=== PATIENT | male | born 1990 | race Caucasian/White ===

== ENCOUNTER 2023-11-23 23:02 | Observation (INO) | payer OTHER ==
--- NOTE | 2023-11-24 01:26 | ED ---
Abdominal Pain HPI - General Chief Complaint: Abdominal Pain Stated Complaint: Gall Stones Time Seen by Provider: 11/23/23 23:22 Source: patient Mode of arrival: EMS Limitations: no limitations - History of Present Illness Initial Comments: 33-year-old male presents to the emergency department from [facility]. Patient was seen on the eighth at [place] for right upper quadrant abdominal pain. He was told that he was having reflux. No imaging was performed. Patient was sent home. He continued to have pain and therefore went into [place] last night. Ultrasound was not available. CT was performed which demonstrates gallstones. He did receive a considerable amount of medications and continue to have pain. The ER doc at [facility] recommended transfer for surgical consultation. Patient denies any fevers. Admits to nausea. No changes in his bowel or bladder habits. No other alleviating, precipitating or modifying factors - Related Data Allergies Allergy/AdvReac Type Severity Reaction Status Date / Time No Known Allergies Allergy Verified 11/23/23 23:13 Review of Systems ROS Statement: Those systems with pertinent positive or pertinent negative responses have been documented in the HPI. ROS Other: All systems not noted in ROS Statement are negative. Past Medical History Past Medical History: No Reported History, GERD/Reflux Additional Past Medical History / Comment(s): jarvis to right arm Past Surgical History: Adenoidectomy, Tonsillectomy Past Psychological History: ADD/ADHD, Anxiety Smoking Status: Current every day smoker Past Alcohol Use History: None Reported Past Drug Use History: Marijuana General Exam Limitations: no limitations General appearance: alert, in no apparent distress Head exam: Present: atraumatic, normocephalic, normal inspection Eye exam: Present: normal appearance, PERRL, EOMI. Absent: scleral icterus, conjunctival injection, periorbital swelling ENT exam: Present: normal exam, mucous membranes moist Neck exam: Present: normal inspection. Absent: tenderness, meningismus, lymphadenopathy Respiratory exam: Present: normal lung sounds bilaterally. Absent: respiratory distress, wheezes, rales, rhonchi, stridor Cardiovascular Exam: Present: regular rate, normal rhythm, normal heart sounds. Absent: systolic murmur, diastolic murmur, rubs, gallop, clicks GI/Abdominal exam: Present: soft, tenderness (ruq pain), normal bowel sounds. Absent: distended, guarding, rebound, rigid Extremities exam: Present: normal inspection, full ROM, normal capillary refill. Absent: tenderness, pedal edema, joint swelling, calf tenderness Back exam: Present: normal inspection Neurological exam: Present: alert, oriented X3, CN II-XII intact Psychiatric exam: Present: normal affect, normal mood Skin exam: Present: warm, dry, intact, normal color. Absent: rash Course Vital Signs 11/23/23 11/24/23 11/24/23 23:04 00:05 02:07 Temperature 97.8 F Pulse Rate 62 60 82 Respiratory 20 18 18 Rate Blood Pressure 127/66 120/62 118/75 O2 Sat by Pulse 98 98 99 Oximetry 11/24/23 06:00 Temperature Pulse Rate 85 Respiratory 18 Rate Blood Pressure 125/77 O2 Sat by Pulse 99 Oximetry Medical Decision Making - Medical Decision Making Was pt. sent in by a medical professional or institution (, PA, LODGE OFFICER, urgent care, hospital, or retirement...) When possible be specific @ -Patient sent in from [facility] Did you speak to anyone other than the patient for history (EMS, parent, family, police, friend...)? What history was obtained from this source @ -I spoke with Dr. Osborn at [facility] Did you review nursing and triage notes (agree or disagree)? Why? @ -I reviewed and agree with nursing and triage notes Were old charts reviewed (outside hosp., previous admission, EMS record, old EKG, old radiological studies, urgent care reports/EKG's, retirement records)? Report findings @ -I reviewed the CT that was completed at [facility] earlier today Differential Diagnosis (chest pain, altered mental status, abdominal pain women, abdominal pain men, vaginal bleeding, weakness, fever, dyspnea, syncope, headache, dizziness, GI bleed, back pain, seizure, CVA, palpatations, mental health, musculoskeletal)? @ -Differential Abdominal Pain Men: Appendicitis, cholecystitis, diverticulosis, ischemic bowel, pancreatitis, he patitis, UTI, gastroenteritis, AAA, incarcerated hernia, bowel obstruction, constipation, inflammatory bowel, hepatitis, peptic ulcer disease, splenic infarction, perforated viscus, testicular torsion, this is not meant to be an all-inclusive list EKG interpreted by me (3pts min.). @ -Not done X-rays interpreted by me (1pt min.). @ -None done CT interpreted by me (1pt min.). @ -None done U/S interpreted by me (1pt. min.). @ -Yes and demonstrates possible cholecystitis What testing was considered but not performed or refused? (CT, X-rays, U/S, labs)? Why? @ -None What meds were considered but not given or refused? Why? @ -None Did you discuss the management of the patient with other professionals (professionals i.e. DrHarshal, PA, LODGE OFFICER, lab, RT, psych nurse, social insurance adviser, toe puncher, teacher, science and operations officer, supportive employment case manager)? Give summary @ -discussed care with dr. alejandre who accepted admission Was smoking cessation discussed for >3mins.? @ -No Was critical care preformed (if so, how long)? @ -No Were there social determinants of health that impacted care today? How? (Homelessness, low income, unemployed, alcoholism, drug addiction, transportation, low edu. Level, literacy, decrease access to med. care, senior living, rehab)? @ -No Was there de-escalation of care discussed even if they declined (Discuss DNR or withdrawal of care, Hospice)? DNR status @ -No What co-morbidities impacted this encounter? (DM, HTN, Smoking, COPD, CAD, Cancer, CVA, ARF, Chemo, Hep., AIDS, mental health diagnosis, sleep apnea, morbid obesity)? @ -None Was patient admitted / discharged? Hospital course, mention meds given and route, prescriptions, significant lab abnormalities, going to OR and other pertinent info. @ -Upon arrival patient seen and evaluated in room 25. I did review the transfer packet. I spoke with Dr. Alejandre. Patient is n.p.o. Patient will be admitted to his service. Ultrasound was performed which demonstrates possible cholecystitis. I did dose 1 dose of antibiotics. Patient admitted to the floor in stable condition Undiagnosed new problem with uncertain prognosis? @ -No Drug Therapy requiring intensive monitoring for toxicity (Heparin, Nitro, Insulin, Cardizem)? @ -No Were any procedures done? @ -No Diagnosis/symptom? @ -Acute right upper quadrant pain, acute cholelithiasis, possible cholecystitis Acute, or Chronic, or Acute on Chronic? @ -Acute Uncomplicated (without systemic symptoms) or Complicated (systemic symptoms)? @ -Complicated Side effects of treatment? @ -No Exacerbation, Progression, or Severe Exacerbation? @ -No Poses a threat to life or bodily function? How? (Chest pain, [place], [place], pneumonia, PE, COPD, DKA, ARF, appy, cholecystitis, CVA, Diverticulitis, Homicidal, Suicidal, threat to staff... and all critical care pts) @ -No Disposition Clinical Impression: RUQ pain, Cholelithiasis Disposition: ADMITTED IP TO THIS [facility] Condition: Stable Is patient prescribed a controlled substance at d/c from ED?: No Time of Disposition: Decision to Admit Reason: Admit from EC Decision Date: 11/24/23 Decision Time:
[2023-11-24] MEDS ORDERED: ACETAMINOPHEN TAB 325 MG TAB PO PRN (01:27)
[2023-11-24] MEDS ORDERED: NALOXONE 0.4 MG/ML 1 ML VIAL IV PRN (01:27)
[2023-11-24] MEDS: SODIUM CHLORIDE 0.9% 1,000 ML IV SCH (05:07)
--- NOTE | 2023-11-24 05:14 | US ---
EXAM: US Abdomen Limited, Gallbladder CLINICAL HISTORY: ITS.REASON US Reason: ruq pain TECHNIQUE: Real-time ultrasound of the right upper quadrant with image documentation. COMPARISON: No relevant prior studies available. FINDINGS: Limitations: Overlying bowel gas. Gallbladder: Multiple echogenic foci/gallstones within the gallbladder with [id number] sign. Gallbladder wall appears thickened, 5 mm. Positive sonographic Doty's sign. No pericholecystic fluid. Common bile duct: Unremarkable as visualized. No stones. No dilation. Common bile duct measures 0.5 cm in diameter. Pancreas: Pancreas obscured by bowel gas. IMPRESSION: Cholelithiasis and gallbladder wall thickening. May represent cholecystitis. Correlate and could consider HIDA scan.
[2023-11-24] MEDS: PIPERACILLIN-TAZOBACTAM 3.375 GM in SODIUM CHLORIDE 0.9% 100 ML IVPB STA (08:28)
[2023-11-24 08:51] LABS: Basophils # (A) 0.1 k/uL (0-0.2); Basophils % (A) 1 %; Eosinophils # (A) 0.2 k/uL (0-0.7); Eosinophils % (A) 2 %; HCT 48.4 % (39.0-53.0); HGB 15.7 gm/dL (13.0-17.5); Lymphocytes # (A) 1.6 k/uL (1.0-4.8); Lymphocytes % (A) 22 %; MCHC 32.5 g/dL (31.0-37.0); MCV 95.2 fL (80.0-100.0); Monocytes # (A) 0.7 k/uL (0-1.0); Monocytes % (A) 10 %; Neutrophils # (A) 4.8 k/uL (1.3-7.7); Neutrophils % (A) 64 %; Platelet Count 193 k/uL (150-450); RBC 5.09 m/uL (4.30-5.90); RDW 13.1 % (11.5-15.5); WBC 7.4 k/uL (3.8-10.6)
[2023-11-24 09:26] LABS: ALT 85 U/L (4-49); AST 70 U/L (17-59); African American GFR (CKD) >90 (>60 ml/min/1.73 sqM); Albumin 3.9 g/dL (3.5-5.0); Albumin/Globulin Ratio 1.6; Alkaline Phosphatase 131 U/L (38-126); Anion Gap 5 mmol/L; Blood Urea Nitrogen 8 mg/dL (9-20); Calcium 9.5 mg/dL (8.4-10.2); Carbon Dioxide 24 mmol/L (22-30); Chloride 109 mmol/L (98-107); Globulin 2.5 g/dL; Glucose 89 mg/dL (74-99); Non-African American GFR(CKD) >90 (>60 ml/min/1.73 sqM); Potassium 4.6 mmol/L (3.5-5.1); Sodium 138 mmol/L (137-145); Total Bilirubin 0.8 mg/dL (0.2-1.3); Total Protein 6.4 g/dL (6.3-8.2)
[2023-11-24] MEDS: IV FLUID CONTINUATION 1,000 ML IV ONE (09:44)
[2023-11-24] MEDS: ONDANSETRON 4 MG/2 ML VIAL IVP PRN (10:00)
[2023-11-24] MEDS: DEXAMETHASONE SOD PHOSPHATE 4 MG/ML 1 ML VIAL IVP STA (10:02)
[2023-11-24] MEDS: LACTATED RINGERS 1,000 ML BAG IV STA (10:10)
[2023-11-24] MEDS: HEPARIN SODIUM,PORCINE 5,000 UNIT/ML 1 ML VIAL SQ STA (10:26)
[2023-11-24] MEDS ORDERED: KETOROLAC 15 MG/ML 1 ML VIAL ONE (10:33)
[2023-11-24] MEDS ORDERED: NEOSTIGMINE 1 MG/ML 10 ML VIAL ONE (10:33)
[2023-11-24] MEDS ORDERED: PROPOFOL 10 MG/ML 20 ML VIAL IV ONE (10:33)
[2023-11-24] MEDS ORDERED: HYDROmorphone (PF) 1 MG/ML ONE (10:33)
[2023-11-24] MEDS ORDERED: LIDOCAINE 1% INJ 10MG/ML (20 ML MDV) ONE (10:33)
[2023-11-24] MEDS ORDERED: ROCURONIUM 10 MG/ML (5 ML VIAL) IV ONE (10:33)
[2023-11-24] MEDS ORDERED: fentaNYL (PF) 50 MCG/ML 2 ML AMP ONE (10:33)
[2023-11-24] MEDS ORDERED: MIDAZOLAM 2 MG/2 ML VIAL ONE (10:33)
[2023-11-24] MEDS ORDERED: GLYCOPYRROLATE 0.2 MG/ML 2 ML VIAL ONE (10:33)
[2023-11-24] MEDS ORDERED: SUCCINYLCHOLINE CHLORIDE 200 MG/10 ML VIAL IV ONE (10:33)
--- NOTE | 2023-11-24 10:33 | P.GSHP ---
History of Present Illness H&P Date: 11/24/23 CHIEF COMPLAINT: Right upper quadrant abdominal pain HISTORY OF PRESENT ILLNESS: This is a 33-year-old male who presented with right upper quadrant abdominal pain x 2 weeks. Patient reports pain worsened again on Monday morning. He went to ER in [place] and at that time was told he had GERD and sent home. Patient's symptoms continued to right upper quadrant pain and was having nausea and vomiting for the past 3 days and went to the [place] [facility] they did a CAT scan that showed gallstones. Patient transferred to [facility] to be evaluated by surgeon. Gallbladder ultrasound had reported gallstones and gallbladder wall thickening may represent cholecystitis. Patient denies any fever or chills. Denies any prior abdominal surgeries. PAST MEDICAL HISTORY: GERD, ADHD, anxiety PAST SURGICAL HISTORY: Adenoidectomy, Tonsillectomy MEDICATIONS: See below ALLERGIES: See below SOCIAL HISTORY: No illicit drug use. Nicotine dependence. Denies alcohol use. Smokes marijuana once a week REVIEW OF SYSTEMS: CONSTITUTIONAL: Denies fever or chills. HEENT: Denies blurred vision, vision changes, or eye pain. Denies hemoptysis CARDIOVASCULAR: Denies chest pain or pressure. RESPIRATORY: No shortness of breath. GASTROINTESTINAL: See HPI for pertinent findings HEMATOLOGIC: Denies bleeding disorders. GENITOURINARY: Denies any blood in urine or increased urinary frequency. SKIN: Denies pruitis. Denies rash. PHYSICAL EXAM: VITAL SIGNS: Reviewed GENERAL: Well-developed in no acute distress. HEENT: No sclera icterus. Extraocular movements grossly intact. Moist buccal m ucosa. Head is atraumatic, normocephalic. No nasal drainage. ABDOMEN: Soft. Nondistended. Right upper quadrant tenderness with palpation. 2 small burn areas on right side abdomen NEUROLOGIC: Alert and oriented. Cranial nerves II through XII grossly intact. LABORATORY DATA: WBC 7.4 Hgb 15.7 platelets 193 Sodium 138 potassium 4.6 creatinine 0.69 Total bilirubin 0.8 AST 70 ALT 85 alk phos 131 IMAGING: Gallbladder ultrasound reports cholelithiasis with gallbladder wall thickening. May represent cholecystitis ASSESSMENT: 1. Acute cholecystitis. Ultrasound reporting cholelithiasis with gallbladder wall thickening 2. Mildly elevated LFTs PLAN: -Patient scheduled for laparoscopic cholecystectomy today with Dr. Cerrato -Continue antibiotics -Continue IV fluids -Continue pain management -Keep patient n.p.o. Physician Veterinarian Poultry note has been reviewed by physician. Signing provider agrees with the documented findings, assessment, and plan of care. I have personally seen and examined the patient, reviewed the BAND SPLITTER /PAs history, exam and MDM and agree with the assessment and plan as written. Based on total visit time, I have performed more than 50% of the visit. As above: Patient with epigastric pain that radiates to the right upper quadrant. On and off for the last 1 week. Denies any change in the color of his skin urine or stool. Patient does have mildly elevated liver enzymes today and they were normal yesterday. Common bile duct normal size. Patient I discussed the clinical scenario in detail. The possibility of choledocholithiasis reviewed. Patient certainly needs his gallbladder out regardless. Will proceed with laparoscopic, possible open cholecystectomy at this time. If there is any suspicion for choledocholithiasis postoperatively will consult GI for possible ERCP. Risks of bleeding, infection, bile leak, bile duct injury, retained common bile duct stone, trocar injury, conversion to an open procedure, hernia, anesthesia related complications were reviewed. The patient understands and wishes to proceed. Past Medical History Past Medical History: No Reported History, GERD/Reflux Additional Past Medical History / Comment(s): jarvis to right arm Past Surgical History: Adenoidectomy, Tonsillectomy Past Psychological History: ADD/ADHD, Anxiety Smoking Status: Current every day smoker Past Alcohol Use History: None Reported Past Drug Use History: Marijuana Medications and Allergies Home Medications Medication Instructions Recorded Confirmed Type Dextroamphetamine/Amphetamine 20 mg PO BID@0430,1200 11/24/23 11/24/23 History [Adderall] Omeprazole [PriLOSEC] 20 mg PO DAILY 11/24/23 11/24/23 History Allergies Allergy/AdvReac Type Severity Reaction Status Date / Time No Known Allergies Allergy Verified 11/24/23 08:15 Surgical - Exam Vital Signs Temp Pulse Resp BP Pulse Ox 97.8 F 62 20 127/66 98 11/23/23 23:04 11/23/23 23:04 11/23/23 23:04 11/23/23 23:04 11/23/23 23:04 Results - Labs 11/24/23 08:22 11/24/23 08:22 Abnormal Lab Results - Last 24 Hours (Table) 07/12/24 Range/Units 08:22 Chloride 109 H (98-107) mmol/L BUN 8 L (9-20) mg/dL AST 70 H (17-59) U/L ALT 85 H (4-49) U/L Alkaline Phosphatase 131 H (38-126) U/L Diabetes panel 11/24/23 Range/Units 08:22 Sodium 138 (137-145) mmol/L Potassium 4.6 (3.5-5.1) mmol/L Chloride 109 H (98-107) mmol/L Carbon Dioxide 24 (22-30) mmol/L BUN 8 L (9-20) mg/dL Creatinine 0.69 (0.66-1.25) mg/dL Glucose 89 (74-99) mg/dL Calcium 9.5 (8.4-10.2) mg/dL AST 70 H (17-59) U/L ALT 85 H (4-49) U/L Alkaline Phosphatase 131 H (38-126) U/L Total Protein 6.4 (6.3-8.2) g/dL Albumin 3.9 (3.5-5.0) g/dL Calcium panel 11/24/23 Range/Units 08:22 Calcium 9.5 (8.4-10.2) mg/dL Albumin 3.9 (3.5-5.0) g/dL Pituitary panel 11/24/23 Range/Units 08:22 Sodium 138 (137-145) mmol/L Potassium 4.6 (3.5-5.1) mmol/L Chloride 109 H (98-107) mmol/L Carbon Dioxide 24 (22-30) mmol/L BUN 8 L (9-20) mg/dL Creatinine 0.69 (0.66-1.25) mg/dL Glucose 89 (74-99) mg/dL Calcium 9.5 (8.4-10.2) mg/dL Adrenal panel 11/24/23 Range/Units 08:22 Sodium 138 (137-145) mmol/L Potassium 4.6 (3.5-5.1) mmol/L Chloride 109 H (98-107) mmol/L Carbon Dioxide 24 (22-30) mmol/L BUN 8 L (9-20) mg/dL Creatinine 0.69 (0.66-1.25) mg/dL Glucose 89 (74-99) mg/dL Calcium 9.5 (8.4-10.2) mg/dL Total Bilirubin 0.8 (0.2-1.3) mg/dL AST 70 H (17-59) U/L ALT 85 H (4-49) U/L Alkaline Phosphatase 131 H (38-126) U/L Total Protein 6.4 (6.3-8.2) g/dL Albumin 3.9 (3.5-5.0) g/dL
[2023-11-24] MEDS: BUPIVACAINE (PF) 0.25% 30 ML VIAL SQ ONE ×2 (10:37→11:03)
[2023-11-24] MEDS: LACTATED RINGERS 1,000 ML IV ONE (12:30)
[2023-11-24] MEDS ORDERED: ONDANSETRON 4 MG/2 ML VIAL IVP PRN (12:36)
--- NOTE | 2023-11-24 12:44 | P.OP ---
Date of Procedure: 11/24/23 Procedure(s) Performed: PREOPERATIVE DIAGNOSIS: Acute calculus cholecystitis POSTOPERATIVE DIAGNOSIS: Same PROCEDURE: Laparoscopic cholecystectomy SURGEON: Saqib EBL: 20 cc ANESTHESIA: Gen. COMPLICATIONS: None OPERATIVE PROCEDURE: The patient was brought and placed on the operating room table in the supine position. The patient was placed under general anesthesia at that time. The abdomen was prepped and draped in the usual sterile fashion. A small vertical infraumbilical incision was made. The fascia was grasped with the Tom forceps. The fascia was retracted anteriorly. The Veress needle was advanced into the peritoneal cavity. The saline drop test was normal. Insufflation took place up to 15 mmHg. A 5 mm optical trocar was advanced and the peritoneal cavity. 2 additional 5 mm trochars were placed in the right upper quadrant under direct visualization. A 12 mm trocar was advanced into the epigastric incision site. The gallbladder had a fairly impressive inflammatory changes diffusely. The gallbladder itself was very indurated and difficult to grasp. Attempts at emptying the contents of the gallbladder did not help since the gallbladder was essentially entirely filled with stones. Much of the inflammatory changes occurred around the infundibulum. The patient had a cork screw like anatomy of the infundibulum extending down to the cystic duct. The cystic duct was actually quite small in this particular case. Once this was well-visualized with the adjacent cystic artery the duct was divided after the placement of 3 clips on the patient's side and 1 on the specimen spied. The adjacent cystic artery was clipped as well. The patient had numerous areas of inflammatory adhesive like tissue to the gallbladder infundibulum that were clipped as well in the event these represented small vessels. The patient had a large vessel along the posterior wall the gallbladder that was clipped at 3 separate locations entering into the gallbladder immediately. The gallbladder was then removed from the liver bed using electrocautery. The gallbladder was then removed from the epigastric trocar site with an Endo Catch bag. This required lengthening of both the fascia and the skin incision. The gallbladder fossa was irrigated with saline. There was no evidence of any bleeding or biliary drainage seen. I decided to place a drain in the bladder fossa. This was brought out through the lateral 5 mm site and sutured in place using a 3-0 silk stitch. The fascia at the 12 millimeter site was closed using a running 0 Vicryl stitch. The trochars were then removed. The skin at all 4 sites was closed using a 4-0 Monocryl stitch. Skin glue was utilized on the incision sites. At the end of this procedure the sponge and needle counts were correct. DISPOSITION: Stable to the recovery room
[2023-11-24] MEDS: HYDROmorphone 0.5 MG/0.5 ML SYRINGE IVP PRN (13:52)
[2023-11-24] MEDS: MORPHINE SULFATE 4 MG/ML SYRINGE IV PRN (14:21)
[2023-11-24] MEDS: HYDROmorphone 1 MG/ML 1 ML SYRINGE IVP PRN (16:33)
[2023-11-24] MEDS: PIPERACILLIN-TAZOBACTAM 3.375 GM in SODIUM CHLORIDE 0.9% 100 ML IVPB SCH (16:34)
[2023-11-24] MEDS: HEPARIN SODIUM,PORCINE 5,000 UNIT/ML 1 ML VIAL SQ SCH (16:34)
[2023-11-24] MEDS: PANTOPRAZOLE 40 MG/10 ML VIAL IV SCH (16:34)
[2023-11-24] MEDS: SIMETHICONE 80 MG CHEWABLE PO SCH (17:33)
[2023-11-24 20:30] LABS: Basophils # (A) 0.1 k/uL (0-0.2); Basophils % (A) 0 %; Eosinophils # (A) 0.1 k/uL (0-0.7); Eosinophils % (A) 0 %; HCT 54.3 % (39.0-53.0); HGB 17.5 gm/dL (13.0-17.5); Lymphocytes # (A) 1.1 k/uL (1.0-4.8); Lymphocytes % (A) 5 %; MCH 30.5 pg (25.0-35.0); MCHC 32.2 g/dL (31.0-37.0); MCV 94.7 fL (80.0-100.0); Mean Platelet Volume 8.1; Monocytes # (A) 1.6 k/uL (0-1.0); Monocytes % (A) 7 %; Neutrophils # (A) 20.1 k/uL (1.3-7.7); Neutrophils % (A) 87 %; Platelet Count 269 k/uL (150-450); RBC 5.73 m/uL (4.30-5.90); RDW 13.3 % (11.5-15.5); WBC 23.1 k/uL (3.8-10.6)
[2023-11-24] MEDS: ALBUTEROL NEBULIZED 2.5 MG/3 ML INHALATION STA (20:51)
--- NOTE | 2023-11-24 21:16 | XR ---
EXAMINATION TYPE: XR chest 1V portable DATE OF EXAM: 11/24/2023 COMPARISON: Gallbladder ultrasound from the same day. Chest radiograph 11/23/2023. HISTORY: Pain TECHNIQUE: Single frontal view of the chest AP upright portable. FINDINGS: The lungs are clear. No pneumothorax or pleural effusions. Cardiomediastinal silhouette is within nor mal limits. The visualized osseous structures are intact. Within the right upper quadrant of the abdo men a partially visualized ARUN surgical drain is seen adjacent to cholecystectomy clips. There is smal l area of pneumoperitoneum within the right upper abdomen presumably related to recent surgery. IMPRESSION: 1. No acute cardiopulmonary process. 2. Cholecystectomy postsurgical changes with ARUN drain partially visualized. Small area of pneumoperit oneum likely related to recent surgery.
--- NOTE | 2023-11-25 01:10 | P.CONS ---
History of Present Illness - Reason for Consult Consult date: 11/24/23 Medical management - Chief Complaint Abdominal pain - History of Present Illness Patient is a 33-year-old male with known history of GERD, ADD/ADHD and anxiety, currently everyday smoker and marijuana transferred from [facility] due to complaints of epigastric and right upper quadrant abdominal pain. Patient has been having symptoms for the past 1 month. He was taking PPI without much improvement. He continues to have pain and presented to [facility]. CT was done there showed gallstones. Patient was transferred to [facility] for further ration with surgery. Otherwise patient denies any complaints of fever or chills. Patient does have nausea and no diarrhea. No cough or sputum production. Denies any recent illnesses otherwise. Laboratory data showed WBC 7.4 hemoglobin 15.7 and platelets 193 sodium 138 potassium 4.6 chloride 109 bicarb is 24 BUN 8 and creatinine 0.69 liver enzymes showed AST 70 ALT 85 alk phos 131 and patient is status post laparoscopic cholecystectomy. Patient tolerated the procedure very well. Currently able to pass flatus and pain is fairly controlled. Patient is also on antibiotic and off Zosyn. Postoperatively WBC went up to 23.1 hemoglobin 17.5 and platelets 269. Review of Systems Constitutional: Patient denies any fever or chills . No generalized weakness or weight loss. Abdomen: Complaints of nausea and abdominal pain. Mainly right sided upper abdominal. No diarrhea. Cardiovascular: Patient denies any chest pain or short of breath no palpitations. Respiratory: patient denied any cough or sputum production. No shortness of breath Neurologic: Patient denied any numbness or tingling. no headache. Musculoskeletal: Patient denies any complaints of joint swelling or deformity. Skin: Negative Psychiatric: Negative Endocrine: No heat or cold intolerance. No recent weight gain. Genitourinary: No dysuria or hematuria. All other 14 point ROS negative except the above Past Medical History Past Medical History: No Reported History, GERD/Reflux Additional Past Medical History / Comment(s): jarvis to right arm History of Any Multi-Drug Resistant Organisms: None Reported Past Surgical History: Adenoidectomy, Tonsillectomy Past Anesthesia/Blood Transfusion Reactions: No Reported Reaction Past Psychological History: ADD/ADHD, Anxiety Smoking Status: Current every day smoker Past Alcohol Use History: None Reported Past Drug Use History: Marijuana Medications and Allergies Home Medications Medication Instructions Recorded Confirmed Type Dextroamphetamine/Amphetamine 20 mg PO BID@0430,1200 11/24/23 11/24/23 History [Adderall] HYDROcodone/APAP 5-325MG [Lindsay 1 tab PO Q6HR PRN 3 Days #6 tab 11/24/23 Rx 5-325] Omeprazole [PriLOSEC] 20 mg PO DAILY 11/24/23 11/24/23 History Allergies Allergy/AdvReac Type Severity Reaction Status Date / Time No Known Allergies Allergy Verified 11/24/23 08:15 Physical Exam Vitals: Vital Signs Temp Pulse Pulse Resp BP BP Pulse Ox 11/24/23 21:04 84 11/24/23 20:51 89 11/24/23 19:33 96.7 F L 77 20 129/71 99 11/24/23 16:10 65 131/77 11/24/23 15:55 56 L 129/79 11/24/23 15:40 56 L 125/82 11/24/23 15:25 60 138/80 11/24/23 15:10 66 121/80 11/24/23 14:40 62 128/79 11/24/23 14:25 59 L 136/88 11/24/23 14:10 98.2 F 59 L 17 121/78 11/24/23 13:30 70 18 145/81 97 11/24/23 13:06 74 16 140/75 97 11/24/23 12:50 97.6 F 81 16 129/68 97 11/24/23 09:55 97.4 F L 51 L 16 113/63 98 11/24/23 09:37 97.8 F 51 L 18 129/74 99 11/24/23 08:20 97.5 F L 60 18 115/73 100 11/24/23 06:00 85 18 125/77 99 11/24/23 02:07 82 18 118/75 99 11/24/23 00:05 60 18 120/62 98 11/23/23 23:04 97.8 F 62 20 127/66 98 Intake and Output 11/24/23 11/24/23 11/24/23 06:59 14:59 22:59 Intake Total 1200 Output Total 20 Balance 1180 Intake: IV 1200 Output: Estimated Blood Loss 20 Other: Weight 84.822 kg 84.822 kg PHYSICAL EXAMINATION: Patient is lying in the bed comfortably, no acute distress, awake alert and oriented.. HEENT: Normocephalic. Neck is supple. Pupils reactive. Nostrils clear. Oral cav ity is moist. Neck reveals no JVD, carotid bruits, or thyromegaly. CHEST EXAMINATION: Trachea is central. Symmetrical expansion. Bibasilar diminished sounds. Otherwise lung ying clear to auscultation and percussion. CARDIAC: Normal S1, S2 with no gallops. No murmurs ABDOMEN: Soft. Bowel sounds sluggish. Tenderness over the surgical site. Abdominal binder in place.. No organomegaly. No abdominal bruits. Extremities: reveal no edema. No clubbing or cyanosis Neurologically awake, alert, oriented x3 with well-coordinated movements. No focal deficits noted Skin: No rash or skin lesions. Psychiatric: Coperative. Nonsuicidal Musculoskeletal: No joint swelling or deformity. Normal range of motion. Results CBC & Chem 7: 11/25/23 05:04 11/24/23 08:22 Labs: Abnormal Lab Results - Last 24 Hours (Table) 11/24/23 11/24/23 Range/Units 08:22 20:05 WBC 23.1 H (3.8-10.6) k/uL Hct 54.3 H (39.0-53.0) % Neutrophils # 20.1 H (1.3-7.7) k/uL Monocytes # 1.6 H (0-1.0) k/uL Chloride 109 H (98-107) mmol/L BUN 8 L (9-20) mg/dL AST 70 H (17-59) U/L ALT 85 H (4-49) U/L Alkaline Phosphatase 131 H (38-126) U/L Assessment and Plan Assessment: Acute cholecystitis. Ultrasound showed cholelithiasis with gallbladder wall thickening. Status post laparoscopic cholecystectomy postoperative day 0 Abdominal pain in the epigastric region and also right upper quadrant without improvement with PPI for the past 1 month. Mild transaminitis ADD/ADHD and anxiety Currently everyday smoker and marijuana use GERD GI and DVT prophylaxis as per primary team Plan: Patient is status post laparoscopic cholecystectomy postoperative day 0. Continues IV hydration and empiric antibiotics Zosyn and for continued pain management encourage incentive spirometry. Continue to follow closely. Further recommendations based on clinical course. Thank you kindly for your consult.
[2023-11-25 03:01] VITALS: RESP 16
[2023-11-25 08:09] VITALS: BP 154/89; PULSE 65; TEMP 98.2
[2023-11-25 09:20] LABS: Basophils # (A) 0.03 X 10*3/uL (0.00-0.10); Basophils % (A) 0.2 %; Eosinophils # (A) 0.01 X 10*3/uL (0.04-0.35); Eosinophils % (A) 0.1 %; HCT 46.1 % (39.6-50.0); HGB 15.2 g/dL (13.0-17.0); Lymphocytes # (A) 1.79 X 10*3/uL (0.90-5.00); Lymphocytes % (A) 12.5 %; MCH 30.9 pg (27.0-32.0); MCV 93.7 FL (80.0-97.0); Mean Platelet Volume 10.5 FL (9.5-12.2); Monocytes # (A) 1.43 X 10*3/uL (0.20-1.00); NRBC Per 100 WBC 0 X 10*3/uL (0.00-0.01); Neutrophils # (A) 11.04 X 10*3/uL (1.80-7.70); Platelet Count 218 X 10*3/uL (140-440); RBC 4.92 X 10*6/uL (4.40-5.60); RDW 13.4 % (11.5-14.5); WBC 14.33 X 10*3/uL (4.50-10.00)
[2023-11-25 12:43] LABS: ALT 81 U/L (10-49); AST 52 U/L (14-35); Albumin 4.1 g/dL (3.8-4.9); Albumin/Globulin Ratio 1.86 Ratio (1.60-3.17); Alkaline Phosphatase 139 U/L (41-126); Blood Urea Nitrogen 7.6 mg/dL (9.0-27.0); Calcium 9.3 mg/dL (8.7-10.3); Carbon Dioxide 23.7 mmol/L (21.6-31.8); Chloride 103 mmol/L (96-109); Globulin 2.2 g/dL (1.6-3.3); Glucose 130 mg/dL (70-110); Potassium 4.1 mmol/L (3.5-5.5); Sodium 139 mmol/L (135-145); Total Bilirubin 0.4 mg/dL (0.3-1.2); Total Protein 6.3 g/dL (6.2-8.2)
--- NOTE | 2023-11-25 13:52 | P.PN ---
Progress Note - Text Progress Note Date: 11/25/23 CHIEF COMPLAINT: Abdominal Pain HISTORY OF PRESENT ILLNESS: NAEO PHYSICAL EXAM: VITAL SIGNS: Reviewed. GENERAL: Well-developed in no acute distress. ABDOMEN: Soft. Nondistended. Incisional dressings clean dry and intact NEUROLOGIC: Alert and oriented. Cranial nerves II through XII grossly intact. ASSESSMENT: 1. 33 year old male s/p cholecystectomy PLAN: -Will discharge with ARUN drain
[2023-11-25] MEDS: HYDROcodone/APAP 5-325MG 1 EACH TAB PO PRN (14:07)
== END 2023-11-25 14:29 | disposition home or self-care (01) ==
LOC: EC 23:02 → 6NMEDSUR 11-24 01:28 → 4SSUR 11-24 13:48
PROVIDERS: ADMIT Surgery; ATTEND Surgery
DX: K80.12 Calculus of gallbladder with acute and chronic cholecystitis without obstruction (principal); K21.9 Gastro-esophageal reflux disease without esophagitis; R74.01 Elevation of levels of liver transaminase levels; F90.9 Attention-deficit hyperactivity disorder, unspecified type; F41.9 Anxiety disorder, unspecified; F12.90 Cannabis use, unspecified, uncomplicated; F17.200 Nicotine dependence, unspecified, uncomplicated; Z79.899 Other long term (current) drug therapy
CPT/HCPCS: 96372 ×2; 99285; 94640; 93005; 88304; 80053 ×2; 84484; 85025 ×2; 71045; 76705; 47562; G0378 ×3; J2543 ×2; J2250; J0330; J2270 ×2; J1644 ×2; J1100; J2710; J2405; J2001; J3010; J1170 ×3; J1885; J2704; J0665; J1596; J2470 ×2